=== PATIENT | male | born 1955 ===

== ENCOUNTER 2018-07-06 17:43 | Emergency (ER) | payer OTHER ==
[2018-07-06 18:07] VITALS: BP 162/105
[2018-07-06] MEDS ORDERED: predniSONE TAB* 20 MG PO ONE (19:09)
[2018-07-06] MEDS ORDERED: diPHENhydraMINE PO* 50 MG PO ONE (19:09)
[2018-07-06] MEDS ORDERED: predniSONE TAB* 10 MG PO ONE (19:10)
--- NOTE | 2018-07-06 19:17 | UC ---
Allergic Reaction HPI - HPI Summary HPI Summary: 62 year old male presents for possible reaction to contrast dye. States he had an MRI with contrast performed yesterday, has history of reaction to contrast dye in the past, and was pre-medicated with prednisone 50 mg 12 hour prior to the test, 6 hours prior to the test, and again immediately prior to the procedure. States when he has had this done in the past he has required daily doses of prednisone for at least 3 days after the procedure but none was prescribed to him this time. He did try to contact his primary care provider who stated he would call in a prescription but when he went to the pharmacy there was no prescription to fill. He states that today he developed a pruritic rash to his chest and back and has a sensation of "throat fullness that makes it difficult to swallow". He denies drooling, swelling of the lips or tongue, difficulty breathing, or wheezing. 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 - IN [facility] - Family History Known Family History: Positive: Non-Contributory - Social History Occupation: Employed Full-time Lives: With Family Alcohol Use: Occasionally Substance Use Type: None Smoking Status (MU): Former Smoker Review of Systems All Other Systems Reviewed And Are Negative: Yes Constitutional: Negative: Fever, Chills Skin: Positive: Rash ENT: Positive: Other - Throat swelling. Negative: Sore Throat, Ear Ache, Nasal Discharge, Sinus Congestion, Sinus Pain/Tenderness Respiratory: Negative: Shortness Of Breath, Cough Cardiovascular: Negative: Palpitations, Chest Pain Gastrointestinal: Negative: Abdominal Pain, Vomiting, Diarrhea, Nausea Genitourinary: Positive: Negative Musculoskeletal: Positive: Negative Neurological: Positive: Negative Is Patient Immunocompromised?: No Physical Exam - Summary Physical Exam Summary: GENERAL APPEARANCE: Well developed, well nourished, alert and cooperative, and appears to be in no acute distress. NOSE: No nasal discharge. THROAT: Pharynx normal. No tonsilar inflammation, swelling, or exudate. Single tonsilith noted to left tonsil. Uvula midline. No swelling of the lips, tongue, or throat noted. Airway patent. NECK: Neck supple, non-tender without lymphadenopathy. CARDIAC: Normal S1 and S2. No S3, S4 or murmurs. Rhythm is regular. There is no peripheral edema, cyanosis or pallor. Extremities are warm and well perfused. Capillary refill is less than 2 seconds. Peripheral pulses intact. LUNGS: Clear to auscultation without rales, rhonchi, wheezing or diminished breath sounds. Good air exchange. ABDOMEN: Positive bowel sounds. Soft, nondistended, nontender. No guarding or rebound. No masses or hepatosplenomegally. MUSKULOSKELETAL: ROM intact to all extremities. No joint erythema or tenderness. Normal muscular development. Normal gait. SKIN: Mild urticaria to upper chest and back. Triage Information Reviewed: Yes Vital Signs: Initial Vital Signs Temp 98.5 F 07/06/18 18: Pulse 77 07/06/18 18:01 Resp 20 07/06/18 18:01 BP 162/105 07/06/18 18:01 Pulse Ox 98 07/06/18 18:01 Vital Signs Reviewed: Yes Allergic Reaction Course/Dx - Course Course Of Treatment: 62 year old male presents for possible reaction to contrast dye. States he had an MRI with contrast performed yesterday, has history of reaction to contrast dye in the past, and was pre-medicated with prednisone 50 mg 12 hour prior to the test, 6 hours prior to the test, and again immediately prior to the procedure. States when he has had this done in the past he has required daily doses of prednisone for at least 3 days after the procedure but none was prescribed to him this time. He did try to contact his primary care provider who stated he would call in a prescription but when he went to the pharmacy there was no prescription to fill. He states that today he developed a pruritic rash to his chest and back and has a sensation of "throat fullness that makes it difficult to swallow". He denies drooling, swelling of the lips or tongue, difficulty breathing, or wheezing. Afebrile. Hypertensive otherwise vital signs stable. Exam was remarkable for urticaria to his upper chest and back. There was no swelling of the lips, tongue, or throat noted. Airway was patent. Bilateral lung sounds were clear with good air exchange. Patient was given a dose of prednisone 50 mg PO and diphenhydramine 50 mg PO in the clinic. A prescription for prednisone 50 mg daily x 2 days was sent to the pharmacy and he was encouraged to continue to use diphenhydramine 25-50 mg q6h as needed for itching and rash. He is to follow up with his PCP within 3 days for recheck of symptoms. Anticipatory guidance and warning symptoms were reviewed with patient. Verbalizes understanding and agrees with POC. - Differential Dx/Diagnosis Differential Diagnosis/HQI/PQRI: Anaphylaxis, Angioedema, Urticaria Provider Diagnosis: Allergic reaction to contrast dye Discharge - Sign-Out/Discharge Documenting (check all that apply): Patient Departure All imaging exams completed and their final reports reviewed: No Studies - Discharge Plan Condition: Stable Disposition: HOME Prescriptions: predniSONE TAB* [Deltasone TAB*] 50 mg PO DAILY #2 tab Patient Education Materials: General Allergic Reaction (ED) Referrals: Tammi Lechuga MD [Primary Care Provider] - 3 Days (Follow up within 3 days for recheck of symptoms.) Additional Instructions: You were given prednisone 50 mg and diphenhydramine (Benadryl) 50 mg in the clinic today for your allergic reaction to the contrast dye. Continue prednisone 50 mg daily to 2 days starting tomorrow. Use over the counter diphenhydramine 1-2 capsules every 6 hours as needed for hives and/or itching. Follow up with your primary care provider within 3 days for recheck of symptoms. Your blood pressure was elevated in the clinic today. It is recommended that you have this rechecked by your primary care provider. Seek immediate medical attention in the emergency room if you have swelling of the lips, tongue, or throat, difficulty breathing, or any worsening of symptoms. - Billing Disposition and Condition Condition: STABLE Disposition: Home
== END 2018-07-06 19:30 | disposition home or self-care (01) ==
LOC: UCEAST 17:43
DX: L23.89 Allergic contact dermatitis due to other agents (principal); T50.8X5A Adverse effect of diagnostic agents, initial encounter; Z88.0 Allergy status to penicillin; Z91.041 Radiographic dye allergy status; Z87.891 Personal history of nicotine dependence
CPT/HCPCS: 99212; A9270-GY; G0463; J7512